=== PATIENT | female | born 1940 | race Caucasian/White ===

== ENCOUNTER 2018-07-22 18:05 | Emergency (ER) | payer OTHER ==
--- OUTSIDE RECORDS SUMMARY | 2018-07-22 18:07 | XMS REPORT ---
:1940 Author Organization e[employer]Works Care Team Providers Name Role Phone King, Na Provider Role Unavailable Allergies No Known Allergies Problems Problem Type Condition Code Onset Dates Condition Status Problem Primary osteoarthritis involving M15.0 Active multiple joints Problem Family history of cardiac disorder Z82.49 Active Problem Hyperlipidemia E78.5 Active Problem Age related osteoporosis, M81.0 Active unspecified pathological fracture presence Problem Family history of diabetes mellitus Z83.3 Active Problem Age-related osteoporosis without M81.0 Active current pathological fracture Problem Hypertension I10 Active Problem Onychomycosis B35.1 Active Medications No Known Medications Results No Known Results Summary Purpose eClinicalWorks Submission
--- OUTSIDE RECORDS SUMMARY | 2018-07-22 18:07 | XMS REPORT ---
:1940 Author Organization [employer]Works Care Team Providers Name Role Phone King, Na Provider Role Unavailable Allergies, Adverse Reactions, Alerts Substance Reaction Event Type N.K.D.A. Info Not Available Non Drug Allergy Problems Problem Type Condition Code Onset Dates Condition Status Assessment Age-related osteoporosis without M81.0 Active current pathological fracture Assessment Hypertension I10 Active Assessment Hyperlipidemia E78.5 Active Assessment Primary osteoarthritis involving M15.0 Active multiple joints Problem Hypertension I10 Active Problem Onychomycosis B35.1 Active Problem Hyperlipidemia E78.5 Active Problem Primary osteoarthritis involving M15.0 Active multiple joints Problem Family history of cardiac disorder Z82.49 Active Problem Family history of diabetes mellitus Z83.3 Active Problem Age-related osteoporosis without M81.0 Active current pathological fracture Medications Medication Code Code Instructions Start End Date Status Dosage System Date Diclofenac [facility] 14125298015 75 MG Orally Active 1 tablet Sodium Twice a day with food or milk Aspirin 81 [facility] 94050922042 81 MG Orally September 30October Active 1 tablet Once a day 2017 Amlodip[place] 96761536115 5 MG Orally Once September 30, Active 1 tablet Besylate a day 2017 Fosamax [facility] 77732456987 70 MG Orally Mar 24, Active 1 tablet once weekly 2018 Results No Known Results Summary Purpose eClinicalWorks Submission
--- OUTSIDE RECORDS SUMMARY | 2018-07-22 18:07 | XMS REPORT | Clinical Summary ---
:1940 Author Organization [facility] Address [address] [place] [id number] Care Team Providers Name Role Phone Asked, No Pcp Primary Care Provider Unavailable Allergies No Known Allergies Medications Medication Sig Dispensed Refills Start Date End Date Status alendronate (FOSAMAX) Take by mouth 0 Active 70 MG tablet every 7 days. Take in the morning with a full glass of water, on an empty stomach, and do not take anything else by mouth or lie down for the next 30 min. Active Problems Problem Noted Date Osteoporosis 07/06/2016 Essential hypertension 07/06/2016 Pure hypercholesterolemia 07/06/2016 Syncope and collapse 06/21/2016 Family History Medical History Relation Name Comments Diabetes Father Hypertension Father Stroke Father Diabetes Mother Heart disease Mother Hypertension Mother Relation Name Status Comments Father Mother Social History Tobacco Use Types Packs/Day Years Used Date Never Smoker Alcohol Use Drinks/Week oz/Week Comments No Sex Assigned at Date Recorded Not on file Job Start Date Occupation Industry Not on file Not on file Not on file Travel History Travel Start Travel End No recent travel history available. Last Filed Vital Signs Not on file Plan of Treatment Health Maintenance Due Date Last Done Comments SHINGLES VACCINES (1 of 2) 1988 PNEUMOCOCCAL POLYSACCHARIDE VACCINE AGE 65 AND OVER 2003 PNEUMOCOCCAL-13 2003 INFLUENZA VACCINE 02/09/2018 Implants Implanted Type Area Tank Processor Device Shelf Model / Identifier Expiration Serial / Date Lot System Reveal Linq W/Monitors - [id number] Cardiac N/A: [employer] 2016 LINQSYS / Implanted: 06/25/2016 (Quantity not on file) Pacemakers and N/A CARDIAC RHYTHM / Related DISEASE MGMT [id number] Products Results Not on fileafter 07/21/2017 Insurance Payer Benefit Plan / Group Subscriber ID Type Phone Address [employer] [facility] xxxxxxxxx HMO Advance Directives Patient has advance care planning documents, and code status on file. For more information, please contact:Kuldip Banuelos[address] [place] [address] Code Status Date Activated Date Inactivated Comments Full Code 06/21/2016 6:20 AM 06/25/2016 2:21 PM Code Status decision reached by: Patient
--- OUTSIDE RECORDS SUMMARY | 2018-07-22 18:07 | XMS REPORT ---
:1940 Author Organization eClinicalWorks Care Team Providers Name Role Phone King, Na Provider Role Unavailable Allergies, Adverse Reactions, Alerts Substance Reaction Event Type N.K.D.A. Info Not Available Non Drug Allergy Problems Problem Type Condition Code Onset Dates Condition Status Assessment Adult general medical exam Z00.00 Active Problem Primary osteoarthritis involving M15.0 Active multiple joints Problem Family history of cardiac disorder Z82.49 Active Problem Hyperlipidemia E78.5 Active Problem Age related osteoporosis, M81.0 Active unspecified pathological fracture presence Problem Family history of diabetes mellitus Z83.3 Active Problem Age-related osteoporosis without M81.0 Active current pathological fracture Problem Hypertension I10 Active Problem Onychomycosis B35.1 Active Assessment Hypertension I10 Active Assessment Hyperlipidemia E78.5 Active Assessment Screening for malignant neoplasm of Z12.11 Active colon Assessment Age related osteoporosis, M81.0 Active unspecified pathological fracture presence Assessment Screening for cholesterol level Z13.220 Active Assessment Encounter for vitamin deficiency Z13.21 Active screening Assessment Fatigue, unspecified type R53.83 Active Assessment Encounter for screening mammogram Z12.31 Active for breast cancer Assessment Thyroid disorder screening Z13.29 Active Assessment Gynecologic exam normal Z01.419 Active Medications Medication Code Code Instructions Start End Date Status Dosage System Date Fosamax [facility] 42956899290 70 MG Orally Mar 24, Active 1 tablet once weekly 2018 Amlodipine [facility] 87516689642 5 MG Orally Once September 30, Active 1 tablet Besylate a day 2017 Diclofenac [facility] 95794029469 75 MG Orally Active 1 tablet Sodium Twice a day with food or milk Results Name Result Date Reference Range Unit Abnormality Flag Urinalysis W/Microscopic ----Urine Nitrate POSITIVE 20180308 NEG AA ----Urine Urobilinogen 0.2 20180308 0.2-1.0 ----Urine Specific Holl[place] 1.020 20180308 1.005-1.030 ----Urine Mucus 1+ 20180308 NONE SEEN ----Urine Glucose NEGATIVE 20180308 NEG ----Urine Culture Reflex REFLEXED [id number] Order ----Urine Bilirubin NEGATIVE 20180308 NEG ----Sqamous Epithelial <5 [id number] NONE SEEN ----Urine Ketones NEGATIVE 20180308 NEG ----Urine Bacteria LOADED 47779683 <20 AA ----Urine Blood NEGATIVE 20180308 NEG ----Urine RBC <5 79825032 NONE SEEN ----Urine pH 8.0 16464066 5.0-7.0 AA ----Urine Color YELLOW 20180308 ----Urine Protein NEGATIVE 60755693 NEG ----Urine WBC 20-50 22859473 <5 AA ----Urine Appearance CLOUDY 20180308 ----Urine Leukocyte 2+ 20180308 NEG AA Esterase Lipid Profile ----Cholesterol/HDL Ratio 6.16 20180308 ----Cholesterol Level 265 69106746 <200 mg/dL H ----Triglycerides Level 205 81720195 <150 mg/dL H ----HDL Cholesterol 43 08529569 40-60 mg/dL ----LDL Cholesterol, 181 58549324 <130 H Calculated TSH Thyroid Stimulating Hormone ----Thyroid Stimulating 1.130 [id number] 0.36-3.74 [iU]/L Hormone Summary Purpose eClinicalWorks Submission
--- OUTSIDE RECORDS SUMMARY | 2018-07-22 18:08 | XMS REPORT ---
:1940 Author Organization eClinicalWorks Care Team Providers Name Role Phone King, Na Provider Role Unavailable Allergies, Adverse Reactions, Alerts Substance Reaction Event Type N.K.D.A. Info Not Available Non Drug Allergy Problems Problem Type Condition Code Onset Dates Condition Status Assessment Hypertension I10 Active Problem Primary osteoarthritis involving M15.0 Active multiple joints Assessment Primary osteoarthritis involving M15.0 Active multiple joints Assessment Age-related osteoporosis without M81.0 Active current pathological fracture Assessment Hyperlipidemia E78.5 Active Problem Family history of cardiac disorder Z82.49 Active Problem Hyperlipidemia E78.5 Active Problem Age related osteoporosis, M81.0 Active unspecified pathological fracture presence Problem Family history of diabetes mellitus Z83.3 Active Problem Age-related osteoporosis without M81.0 Active current pathological fracture Problem Hypertension I10 Active Problem Onychomycosis B35.1 Active Medications Medication Code Code Instructions Start End Date Status Dosage System Date Amlodipine [facility] 55960802590 5 MG Orally Once Active 1 tablet Besylate a day Fosamax [facility] 99960962477 70 MG Orally Active 1 tablet once weekly Diclofenac [facility] 60915289920 75 MG Orally Active 1 tablet Sodium Twice a day with food or milk Results No Known Results Summary Purpose eClinicalWorks Submission
--- NOTE | 2018-07-22 20:08 | RAD REPORT ---
EXAM DESCRIPTION: RAD - Chest Single View - 07/22/2018 7:23 pm CLINICAL HISTORY: COUGH Chest pain. COMPARISON: Chest Single View dated 06/20/2016 FINDINGS: Portable technique limits examination quality. The lungs are grossly clear. The heart is normal in size. No displaced fractures. IMPRESSION: No acute intrathoracic process suspected.
[2018-07-22 20:26] LABS: Absolute Monocytes 0.5 K/uL (0.1-1.3); Absolute Neutrophil 2.3 K/uL (1.8-8.0); Basophils % 0.8 % (0-1.3); Eosinophils % 2.5 % (0-4.4); Hematocrit 38.5 % (36.0-45.0); Lymphocytes % 26.3 % (15.3-44.8); MPV 8.9 fL (7.6-11.3); Monocytes % 11.8 % (3.3-12.3)
[2018-07-22] MEDS ORDERED: NA CHLORIDE 0.9% 1,000 ML ONE (20:28)
[2018-07-22] MEDS ORDERED: CEFTRIAXONE/SWI 1gm 1 GM/10 ML SYR ONE (20:28)
[2018-07-22 20:34] LABS: Protime INR 0.97
[2018-07-22 20:54] LABS: ALT/SGPT 26 U/L (12-78); AST/SGOT 18 U/L (15-37); Albumin 3.6 g/dL (3.4-5.0); Alkaline Phosphatase 71 U/L (45-117); BUN Blood Urea Nitrogen 11 mg/dL (7-18); Bicarbonate 30 mmol/L (21-32); Bilirubin Direct < 0.1 mg/dL (0-0.2); Bilirubin Total 0.4 mg/dL (0.2-1.0); Glucose Level 92 mg/dL (74-106); Lipase 170 U/L (73-393); Magnesium 2.5 mg/dL (1.8-2.4); NT PRO-BNP 279 pg/mL (<450); Potassium 3.4 mmol/L (3.5-5.1); Protein, Total 7.2 g/dL (6.4-8.2); Sodium Level 143 mmol/L (136-145); Troponin (Emerg Dept Use Only) < 0.02 ng/mL (0.0-0.045)
[2018-07-22 21:09] LABS: Urine Blood 1+ (NEG); Urine Glucose NEGATIVE (NEG); Urine Protein NEGATIVE (NEG); Urine Specific Gravity 1.015 (1.005-1.030); Urine pH 5.5 (5.0-7.0)
--- NOTE | 2018-07-22 21:39 | RAD REPORT ---
EXAM DESCRIPTION: CTAbdomen Pelvis W Contrast - 07/22/2018 9:24 pm CLINICAL HISTORY: Abdominal pain. ABD PAIN COMPARISON: No comparisons TECHNIQUE: Biphasic CT imaging of the abdomen and pelvis was performed with 100 ml non-ionic IV cont rast. All CT scans are performed using dose optimization technique as appropriate and may include automated exposure control or mA/KV adjustment according to patient size. FINDINGS: The lung bases are clear. The liver, spleen, pancreas, adrenal glands and kidneys are within normal limits. No bowel obstruction, free air, free fluid or abscess. Prominent sigmoid diverticulosis without diver ticulitis. The appendix is normal. No evidence of significant lymphadenopathy. Moderate lumbar degenerative changes. IMPRESSION: No acute intra-abdominal or pelvic finding. Prominent sigmoid diverticulosis coli without diverticulitis.
--- NOTE | 2018-07-22 21:51 | EDPHYS ---
Physician Documentation [facility] Name: Brina Donovan Age: 77 yrs Sex: Female : 1940 Arrival Date: 07/22/2018 Time: 18:07 Bed 30 Private MD: Divya King ED Physician Osman Camarena HPI: 07/22 18:49 This 77 yrs old Female presents to ER via Ambulatory with complaints of Loose perlita Stools. 18:49 The patient presents with pain that is acute, with no known mechanism of injury. The perlita symptoms are located in the low back. The pain does not radiate. The problem was sustained from unknown cause. Onset: The symptoms/episode began/occurred 2 day(s) ago. Modifying factors: The patient symptoms are alleviated by nothing, the patient symptoms are aggravated by nothing. Associated signs and symptoms: Pertinent positives: bowel incontinence, loose continuous stools. Historical: - Allergies: 18:37 No Known Allergies; iw - PMHx: 18:37 Hypertension; Osteoporosis; iw - PSHx: 18:37 Tonsillectomy; Hysterectomy; Right Rotator cuff repair; iw - Immunization history:: Adult Immunizations up to date. - Ebola Screening: : Patient negative for fever greater than or equal to 101.5 degrees Fahrenheit, and additional compatible Ebola Virus Disease symptoms Patient denies exposure to infectious person Patient denies travel to an Ebola-affected area in the 21 days before illness onset No symptoms or risks identified at this time. - Family history:: not pertinent. - Social history:: Smoking status: unknown. ROS: 18:49 Constitutional: Negative for fever, chills, and weight loss, Eyes: Negative for injury, perlita pain, redness, and discharge, ENT: Negative for injury, pain, and discharge, Neck: Negative for injury, pain, and swelling, Cardiovascular: Negative for chest pain, palpitations, and edema, Respiratory: Negative for shortness of breath, cough, wheezing, and pleuritic chest pain, : Negative for injury, bleeding, discharge, and swelling, MS/Extremity: Negative for injury and deformity, Skin: Negative for injury, rash, and discoloration, Neuro: Negative for headache, weakness, numbness, tingling, and seizure, Psych: Negative for depression, anxiety, suicide ideation, homicidal ideation, and hallucinations, Allergy/Immunology: Negative for hives, rash, and allergies, Endocrine: Negative for neck swelling, polydipsia, polyuria, polyphagia, and marked weight changes, Hematologic/Lymphatic: Negative for swollen nodes, abnormal bleeding, and unusual bruising. 18:49 Abdomen/GI: Positive for abdominal pain, of the suprapubic area. 18:49 Back: Positive for pain at rest, of the left low back. Exam: 18:49 Constitutional: This is a well developed, well nourished patient who is awake, alert, perlita and in no acute distress. Head/Face: Normocephalic, atraumatic. Eyes: Pupils equal round and reactive to light, extra-ocular motions intact. Lids and lashes normal. Conjunctiva and sclera are non-icteric and not injected. Cornea within normal limits. Periorbital areas with no swelling, redness, or edema. ENT: Nares patent. No nasal discharge, no septal abnormalities noted. Tympanic membranes are normal and external auditory canals are clear. Oropharynx with no redness, swelling, or masses, exudates, or evidence of obstruction, uvula midline. Mucous membranes moist. Neck: Trachea midline, no thyromegaly or masses palpated, and no cervical lymphadenopathy. Supple, full range of motion without nuchal rigidity, or vertebral point tenderness. No Meningismus. Chest/axilla: Normal chest wall appearance and motion. Nontender with no deformity. No lesions are appreciated. Cardiovascular: Regular rate and rhythm with a normal S1 and S2. No gallops, murmurs, or rubs. Normal PMI, no JVD. No pulse deficits. Respiratory: Lungs have equal breath sounds bilaterally, clear to auscultation and percussion. No rales, rhonchi or wheezes noted. No increased work of breathing, no retractions or nasal flaring. Female : Normal external genitalia. Skin: Warm, dry with normal turgor. Normal color with no rashes, no lesions, and no evidence of cellulitis. MS/ Extremity: Pulses equal, no cyanosis. Neurovascular intact. Full, normal range of motion. Neuro: Awake and alert, GCS 15, oriented to person, place, time, and situation. Cranial nerves II-XII grossly intact. Motor strength 5/5 in all extremities. Sensory grossly intact. Cerebellar exam normal. Normal gait. Psych: Awake, alert, with orientation to person, place and time. Behavior, mood, and affect are within normal limits. 18:49 Abdomen/GI: Inspection: abdomen appears normal, Bowel sounds: normal, Palpation: mild abdominal tenderness, in the suprapubic area, Liver: no appreciated palpable abnormalities, Hernia: not appreciated. Vital Signs: 19:27 BP 159 / 78; Pulse 60; Resp 16; Temp 98.2; Pulse Ox 99% on R/A; Weight 61.69 kg; Height iw 5 ft. 2 in. (157.48 cm); Pain 0/10; 20:00 BP 152 / 71; Pulse 57; Resp 18; Pulse Ox 98% on R/A; tl3 22:14 BP 154 / 73; Pulse 64; Resp 18; Pulse Ox 97% ; tl3 19:27 Body Mass Index 24.87 (61.69 kg, 157.48 cm) iw MDM: 18:31 Patient medically screened. [facility] 18:52 Data reviewed: vital signs, nurses notes, lab test result(s), EKG, radiologic studies, [facility] CT scan, plain films. 07/22 18:49 Order name: Basic Metabolic Panel; Complete Time: 21:01 [facility] 07/22 18:49 Order name: CBC with Diff; Complete Time: 21: [facility] 07/22 18:49 Order name: LFT's; Complete Time: 21: [facility] 07/22 18:49 Order name: Magnesium; Complete Time: 21: [facility] 07/22 18:49 Order name: NT PRO-BNP; Complete Time: 21: [facility] 07/22 18:49 Order name: PT-INR; Complete Time: 21: [facility] 07/22 18:49 Order name: Troponin (emerg Dept Use Only); Complete Time: 21:01 [facility] 07/22 18:49 Order name: XRAY Chest (1 view); Complete Time: 20:25 [facility] 07/22 18:49 Order name: Lipase; Complete Time: 21: [facility] 07/22 18:49 Order name: Urine Culture [facility] 07/22 18:49 Order name: CT Abd/Pelvis - W/Contrast: oral and iv; Complete Time: 21:46 [facility] 07/22 20:09 Order name: Urine Dipstick--Ancillary (enter results); Complete Time: 21:40 ar5 07/22 18:49 Order name: EKG; Complete Time: 18:50 [facility] 07/22 18:49 Order name: Cardiac monitoring; Complete Time: 20:15 [facility] 07/22 18:49 Order name: EKG - Nurse/Tech; Complete Time: 20:15 [facility] 07/22 18:49 Order name: IV Saline Lock; Complete Time: 20:16 [facility] 07/22 18:49 Order name: Labs collected and sent; Complete Time: 20:16 [facility] 07/22 18:49 Order name: O2 Per Protocol; Complete Time: 20:16 [facility] 07/22 18:49 Order name: O2 Sat Monitoring; Complete Time: 20:16 [facility] 07/22 18:49 Order name: Urine Dipstick-Ancillary (obtain specimen); Complete Time: 21:55 [facility] 07/22 21:02 Order name: PO challenge: juice; Complete Time: 22:10 [facility] Administered Medications: 20:30 Drug: NS 0.9% 500 ml Route: IV; Rate: bolus; Site: left antecubital; Delivery: Primary tl3 tubing; 22:17 Follow up: IV Status: Completed infusion; IV Intake: 500ml tl3 20:30 Drug: Rocephin - (cefTRIAXone) 1 grams Route: IVPB; Infused Over: 5 mins; Site: left tl3 antecubital; Delivery: Primary tubing; 22:17 Follow up: IV Status: Completed infusion; IV Intake: 20ml tl3 21:19 Drug: NS 0.9% 1000 ml Route: IV; Rate: 125 ml/hr; Site: left antecubital; Delivery: tl3 Primary tubing; 22:17 Follow up: IV Status: Completed infusion; IV Intake: 400ml tl3 22:08 Drug: Flagyl 500 mg Route: PO; tl3 22:08 Follow up: Response: Medication administered at discharge. tl3 22:09 Drug: Ciprofloxacin 500 mg Route: PO; tl3 22:10 Follow up: Response: Medication administered at discharge. tl3 Disposition: 07/22/18 21:50 Discharged to Home. Impression: Cystitis, Low back pain, Hypokalemia, Diverticular disease of intestine. - Condition is Stable. - Discharge Instructions: Back Pain, Adult, Potassium Content of Foods, Diverticulosis, Dysuria, Musculoskeletal Pain, Back Injury Prevention, [id number], Back Pain, Adult, [id number]. - Prescriptions for Cipro 250 mg Oral Tablet - take 1 tablet by ORAL route every 12 hours; 14 tablet. Flagyl 250 mg Oral Tablet - take 1 tablet by ORAL route every 8 hours for 7 days; 21 tablet. - Medication Reconciliation Form, Thank You Letter, Antibiotic Education, Prescription Opioid Use form. - Follow up: Divya King; When: 2 - 3 days; Reason: Recheck today's complaints, Continuance of care, Re-evaluation by your physician. - Problem is new. - Symptoms have improved. Signatures: Dispatcher [employer] EDRI Osman Camarena MD MD cha Williams, Irene RN RN iw Ginny Lay RN RN tl3 Corrections: (The following items were deleted from the chart) 22:16 21:50 07/22/2018 21:50 Discharged to Home. Impression: Cystitis; Low back pain; tl3 Hypokalemia; Diverticular disease of intestine. Condition is Stable. Discharge Instructions: Back Pain, Adult, Potassium Content of Foods, Dysuria, Musculoskeletal Pain, Back Injury Prevention, [id number], Back Pain, Adult, [id number]. Prescriptions for Cipro 250 mg Oral Tablet - take 1 tablet by ORAL route every 12 hours; 14 tablet, Bactrim DS 800-160 mg Oral Tablet - take 1 tablet by ORAL route every 12 hours for 3 days; 6 tablet. and Forms are Medication Reconciliation Form, Thank You Letter, Antibiotic Education, Prescription Opioid Use. Follow up: Divya King; When: 2 - 3 days; Reason: Recheck today's complaints, Continuance of care, Re-evaluation by your physician. Problem is new. Symptoms have improved. perlita
--- NOTE | 2018-07-22 21:51 | ER ---
Nurse's Notes [facility] Name: Brina Donovan Age: 77 yrs Sex: Female : 1940 Arrival Date: 07/22/2018 Time: 18:07 Bed 30 Private MD: Divya King Diagnosis: Cystitis;Low back pain;Hypokalemia;Diverticular disease of intestine Presentation: 07/22 18:35 Presenting complaint: Patient states: left low back pain since yesterday morning, then iw had a couple episodes of incontinence of stool. Transition of care: patient was not received from another setting of care. Onset of symptoms was July 21, 2018. Risk Assessment: Do you want to hurt yourself or someone else? Patient reports no desire to harm self or others. Initial Sepsis Screen: Does the patient meet any 2 criteria? No. Patient's initial sepsis screen is negative. Does the patient have a suspected source of infection? No. Patient's initial sepsis screen is negative. Care prior to arrival: None. 18:35 Method Of Arrival: Ambulatory iw 18:35 Acuity: GARRY 3 iw Historical: - Allergies: 18:37 No Known Allergies; iw - PMHx: 18:37 Hypertension; Osteoporosis; iw - PSHx: 18:37 Tonsillectomy; Hysterectomy; Right Rotator cuff repair; iw - Immunization history:: Adult Immunizations up to date. - Ebola Screening: : Patient negative for fever greater than or equal to 101.5 degrees Fahrenheit, and additional compatible Ebola Virus Disease symptoms Patient denies exposure to infectious person Patient denies travel to an Ebola-affected area in the 21 days before illness onset No symptoms or risks identified at this time. - Family history:: not pertinent. - Social history:: Smoking status: unknown. Screenin:00 Abuse screen: Denies threats or abuse. Nutritional screening: No deficits noted. tl3 Tuberculosis screening: No symptoms or risk factors identified. Fall Risk None identified. Assessment: 20:00 General: Appears in no apparent distress. comfortable, well groomed, well developed, tl3 well nourished, Behavior is calm, cooperative, appropriate for age. Pain: Complains of pain in left low back and suprapubic area. Neuro: Level of Consciousness is awake, alert, obeys commands, Oriented to person, place, time, situation, Appropriate for age. Cardiovascular: Patient's skin is warm and dry. Respiratory: Airway is patent Respiratory effort is even, unlabored, Respiratory pattern is regular, symmetrical. GI: Abdomen is flat. : Urine is cloudy. EENT: No deficits noted. No signs and/or symptoms were reported regarding the EENT system. Derm: No deficits noted. No signs and/or symptoms reported regarding the dermatologic system. 21:05 Reassessment: No changes from previously documented assessment. Patient and/or family tl3 updated on plan of care and expected duration. Pain level reassessed. Patient is alert, oriented x 3, equal unlabored respirations, skin warm/dry/pink. no further needs at this time. 22:14 Reassessment: Patient appears in no apparent distress at this time. No changes from tl3 previously documented assessment. Patient and/or family updated on plan of care and expected duration. Pain level reassessed. Patient is alert, oriented x 3, equal unlabored respirations, skin warm/dry/pink. Vital Signs: 19:27 BP 159 / 78; Pulse 60; Resp 16; Temp 98.2; Pulse Ox 99% on R/A; Weight 61.69 kg; Height iw 5 ft. 2 in. (157.48 cm); Pain 0/10; 20:00 BP 152 / 71; Pulse 57; Resp 18; Pulse Ox 98% on R/A; tl3 22:14 BP 154 / 73; Pulse 64; Resp 18; Pulse Ox 97% ; tl3 19:27 Body Mass Index 24.87 (61.69 kg, 157.48 cm) iw ED Course: 18:07 Patient arrived in ED. rg4 18:07 Divya King MD is Private Physician. rg4 18:31 Osman Camarena MD is Attending Physician. perlita 18:36 Triage completed. iw 19:24 XRAY Chest (1 view) In Process Unspecified. EDMS 19:27 Arm band placed on. iw 20:00 Patient has correct armband on for positive identification. Placed in gown. Bed in low tl3 position. Call light in reach. Side rails up X 1. Adult w/ patient. Pulse ox on. NIBP on. 20:00 No provider procedures requiring assistance completed. Inserted saline lock: 20 gauge tl3 in left antecubital area, using aseptic technique. Blood collected. 20:15 Ginny Lay, RN is Primary Nurse. tl3 20:50 Radiology exam delayed due to lab results not completed at this time. (BUN/Creatinine). jj2 21:[address] vm2 21:17 CT completed. Patient tolerated procedure well. Patient moved back from CT. vm2 21:25 CT Abd/Pelvis - W/Contrast: oral and iv In Process Unspecified. EDMS 21:49 Divya King MD is Referral Physician. perlita 22:14 IV discontinued, intact, bleeding controlled, No redness/swelling at site. Pressure tl3 dressing applied. Administered Medications: 20:30 Drug: NS 0.9% 500 ml Route: IV; Rate: bolus; Site: left antecubital; Delivery: Primary tl3 tubing; 22:17 Follow up: IV Status: Completed infusion; IV Intake: 500ml tl3 20:30 Drug: Rocephin - (cefTRIAXone) 1 grams Route: IVPB; Infused Over: 5 mins; Site: left tl3 antecubital; Delivery: Primary tubing; 22:17 Follow up: IV Status: Completed infusion; IV Intake: 20ml tl3 21:19 Drug: NS 0.9% 1000 ml Route: IV; Rate: 125 ml/hr; Site: left antecubital; Delivery: tl3 Primary tubing; 22:17 Follow up: IV Status: Completed infusion; IV Intake: 400ml tl3 22:08 Drug: Flagyl 500 mg Route: PO; tl3 22:08 Follow up: Response: Medication administered at discharge. tl3 22:09 Drug: Ciprofloxacin 500 mg Route: PO; tl3 22:10 Follow up: Response: Medication administered at discharge. tl3 Intake: 22:17 IV: 20ml; Total: 20ml. tl3 22:17 IV: 500ml; Total: 520ml. tl3 22:17 IV: 400ml; Total: 920ml. tl3 Outcome: 21:50 Discharge ordered by . perlita 22:14 Discharged to home ambulatory. tl3 22:14 Condition: stable 22:14 Discharge instructions given to patient, family, Instructed on discharge instructions, follow up and referral plans. Demonstrated understanding of instructions, follow-up care, medications, Prescriptions given X 2. 22:16 Patient left the ED. tl3 Addendum: 07/25/2018 07:50 Addendum: Culture Results: Positive urine culture. No further action required. Bacteria i w sensitive to prescribed antibiotic. Signatures: Dispatcher [employer] Osman El MD MD cha Jaramillo, Savannah Laws, RN Gina Abdi4 Jonna Ashby [facility] Ginny Lay RN RN tl3
[2018-07-22] MEDS ORDERED: CIPROFLOXACIN HCL 500 MG TAB ONE (22:07)
[2018-07-22] MEDS ORDERED: metroNIDAZOLE 500 MG TABLET ONE (22:07)
--- NOTE | 2018-07-23 06:37 | EKG ---
Test Date: 2018-07-22 Test Time: 19:31:07 Loft Worker: ZULEMA MEASUREMENT RESULTS: Intervals: Rate: 54 OR: 142 QRSD: 90 QT: 464 QTc: 440 Hurst: P: OR: 142 QRS: 41 T: 59 INTERPRETIVE STATEMENTS: Sinus bradycardia Otherwise normal ECG Compared to ECG 06/20/2016 21:35:52 Sinus rhythm no longer present Atrial premature complex(es) no longer present Left posterior fascicular block no longer present Electronically Signed On 07-23-18 06:37:26 BELT SPLICER by Margarito Sánchez
== END 2018-07-22 22:16 | disposition home or self-care (01) ==
LOC: ER 18:05
DX: N30.90 Cystitis, unspecified without hematuria (principal); M54.5 Low back pain; E87.6 Hypokalemia; K57.30 Diverticulosis of large intestine without perforation or abscess without bleeding
CPT/HCPCS: 36415; 71045; 74177; 80048; 80076; 81003; 83690; 83735; 83880; 84484; 85025; 85610; 87077; 87086; 87088; 87186; 93005; 96365; 96366; 99284; J0696; J7030; Q9967